=== PATIENT | female | born 1935 | race Caucasian/White ===

== ENCOUNTER 2016-09-01 11:46 | Inpatient (IN) | payer MEDICARE ==
[2016-09-01] VITALS (41 sets, daily range): BP systolic 95–131; BP diastolic 48–97; PULSE 80–130; TEMP 97.5–99; O2SAT 31–100
[~2016-09-01] VITALS: Ht 165.1 cm; Wt 77.7 kg
[~2016-09-01 11:46] MED LIST: CALCIUM600 MG PO; SUPER EPA 2002000 MG PO
[2016-09-01 12:35] LABS: BASO # 0.1 (0.0-0.2); BASO % 0.6 % (0.0-2.0); EOS # 0.1 (0.0-0.7); EOS % 0.6 % (0-4.0); GRAN # 8.5 (1.4-6.5); GRAN % 77.9 % (42.2-75.2); HEMATOCRIT 44.3 % (37.0-47.0); HEMOGLOBIN 14.2 g/dl (12.5-16.0); LYMPH # 1.1 (1.2-3.4); LYMPH % 10.3 % (20.0-51.0); MEAN CELL VOLUME 98 fl (80.0-100.0); MEAN CORPUSCULAR HEMOGLOBIN 31 pg (27.0-31.0); MEAN CORPUSCULAR HGB CONC 32 g/dl (33.0-37.0); MEAN PLATELET VOLUME 10.6 fl (7.4-10.4); MONO # 1.1 (0.1-0.6); MONO % 10.3 % (1.7-9.3); PLATELET COUNT 227 K/mm3 (130-400); RED BLOOD COUNT 4.54 M/mm3 (4.10-5.30); REDCELL DISTRIBUTION WIDTH-CV 12.5 % (11.5-14.5); WHITE BLOOD COUNT 10.8 K/mm3 (4.8-10.8)
[2016-09-01 12:39] LABS: INR 1.7 (0.8-3.0); PROTHROMBIN TIME 18.7 SECONDS (9.7-12.8)
[2016-09-01 12:41] LABS: PARTIAL THROMBOPLASTIN TIME 38.5 SECONDS (26.0-37.0)
[2016-09-01 12:45] LABS: ADJUSTED CALCIUM 10.1 mg/dL (8.4-10.2); ALANINE AMINOTRANSFERASE 27 U/L (9-52); ALBUMIN 4.9 gm/dL (3.5-5.0); ALKALINE PHOSPHATASE 79 U/L (50-136); ANION GAP 18 mmol/L (7-16); BILIRUBIN,TOTAL 0.9 mg/dL (0.0-1.0); BLOOD UREA NITROGEN 21 mg/dL (7-17); C-REACTIVE PROTEIN 0.6 mg/dL (0.0-0.9); CALCIUM 10.8 mg/dL (8.4-10.2); CARBON DIOXIDE 29 mmol/L (22-30); CHLORIDE 99 mmol/L (98-107); CREATININE, serum 0.98 mg/dL (0.52-1.25); GLUCOSE 141 mg/dL (74-106); POTASSIUM 3.8 mmol/L (3.4-5.0); SODIUM 146 mmol/L (137-145); TOTAL PROTEIN 8.7 gm/dL (6.4-8.2)
[2016-09-01 12:54] LABS: TROPONIN-I < 0.012 ng/mL (0.000-0.034)
[2016-09-01 13:04] LABS: PH 5 (5-8); SQUAMOUS EPITHELIAL 0-2 /hpf; URINE APPEARANCE Clear; URINE BACTERIA None Seen /hpf; URINE BILIRUBIN Negative (NEGATIVE); URINE BLOOD 1+ (NEGATIVE); URINE COLOR Yellow; URINE GLUCOSE Negative (NEGATIVE); URINE KETONE Trace (NEGATIVE); URINE UROBILINOGEN Negative (NEGATIVE); URINE WBC 0-2 /hpf
[2016-09-01] MEDS ORDERED: LOPRESSOR 225 MG/TAB PO (13:18)
[2016-09-01] MEDS ORDERED: ELIQUIS 5MG PO (13:19)
[2016-09-01] MEDS ORDERED: IMODIUM 2MG CAPS2 MG PO (13:20)
[2016-09-01] MEDS ORDERED: MILK OF MA400 MG/52 PO (13:22)
[2016-09-01] MEDS ORDERED: CALCIUM 600-D 61 TAB PO (13:22)
[2016-09-01 18:52] LABS: AMPHETAMINE URINE NEGATIVE
[2016-09-01 18:53] LABS: BARBITURATES URINE NEGATIVE; BENZODIAZEPINES URINE NEGATIVE; BUPRENORPHINE URINE NEGATIVE; METHADONE URINE NEGATIVE; OPIATES URINE NEGATIVE; OXYCODONE URINE NEGATIVE; PHENCYCLIDINE URINE NEGATIVE; PROPOXYPHENE URINE NEGATIVE; THC CANNABINOIDS URINE NEGATIVE
[2016-09-02] VITALS (276 sets, daily range): BP systolic 103–137; BP diastolic 43–49; PULSE 60–76; TEMP 97.4–98.4; O2SAT 78–100
[2016-09-02 12:52] LABS: THYROID STIMULATING HORMONE 2.08 uIU/mL (0.465-4.680)
[2016-09-03 00:05] VITALS: BP 110/37; PULSE 73; TEMP 98.2
[2016-09-03 04:07] VITALS: BP 118/52; PULSE 88; TEMP 98.4
[2016-09-03 08:32] VITALS: BP 119/47; PULSE 64; TEMP 98.9
[2016-09-03 12:06] VITALS: BP 98/54; PULSE 58; TEMP 98.7
== END 2016-09-03 14:13 | DRG 948 ==
LOC: COL.ER 11:46 → IMCU 13:44 → MEDICAL 13:44 → ICU 13:44 → IMCU 18:31 → MEDICAL 09-02 16:13
PROVIDERS: Emergency Medicine; Internal Medicine
DX: R41.82 Altered mental status, unspecified (principal); Z66 Do not resuscitate; G31.09 Other frontotemporal neurocognitive disorder; F02.80 Dementia in other diseases classified elsewhere, unspecified severity, without behavioral disturbance, psychotic disturbance, mood disturbance, and anxiety; I48.2 Chronic atrial fibrillation; Z87.891 Personal history of nicotine dependence; F41.8 Other specified anxiety disorders
CPT/HCPCS: 99223-AI; 99232-AI; 99239; A4315; J1160; J1650; J7030; J7050